=== PATIENT | male | born 1950 | race Caucasian/White ===

== ENCOUNTER 2020-08-01 14:04 | Inpatient (IN) ==
[2020-08-01] MEDS ORDERED: Naloxone 0.4 MG/ML INJ IVP PRN (17:27)
[2020-08-01] MEDS ORDERED: Melatonin 3 MG TABLET PO PRN (17:32)
[2020-08-01] MEDS ORDERED: Ondansetron 4 MG/2 ML VIAL IVP PRN (17:32)
[2020-08-01] MEDS ORDERED: Acetaminophen 325 MG TABLET PO PRN (17:32)
[2020-08-01] MEDS ORDERED: *HR* HYDROcodone/Acet 5/325 mg TABLET PO PRN (17:32)
[2020-08-01] MEDS ORDERED: Isovue-370 500 ML BOTTLE IVP ONE (17:41)
[2020-08-01] MEDS ORDERED: Saliva Stimulant 44.3ml BOTTLE PO PRN (17:43)
[2020-08-01] MEDS ORDERED: Saline Nasal Spray 44 ML BOTTLE NS PRN (17:43)
[2020-08-01] MEDS ORDERED: Artificial Tears SOLN 15 ML BOTTLE BOTH EYES PRN (17:43)
[2020-08-01] MEDS ORDERED: Perflutren Lipid Microsphere 1.3 ML in 0.9 % Sodium Chloride 8.7 ML IVP PRN (17:44)
[2020-08-01] MEDS ORDERED: Azithromycin 500 MG in 0.9 % Sodium Chloride 250 ML IVPB SCH (18:00)
[2020-08-01] MEDS ORDERED: cefTRIAXone 1,000 MG in 0.9 % Sodium Chloride Mini Bag 100 ML IVPB SCH (18:00)
[2020-08-01] MEDS ORDERED: predniSONE 20 MG TABLET PO ONE (18:36)
[2020-08-01 18:42] LABS: Immature Granulocytes % 6.3 % (0-4); Lymphocytes % 0.2 %; Mean Corpuscular HGB Conc 33.3 g/dL (31.6-35.5); Mean Corpuscular Volume 89.9 fL (83.0-100.0); Monocytes # 0.2 K/mcL (0.0-1.3); Monocytes % 2.4 %; Platelet Count 111 K/mcL (140-400); Red Blood Count 2.67 M/mcL (4.19-5.50); Red Cell Distribution Width 14.5 % (11.5-14.5); Segmented Neutrophils % 91.1 %; White Blood Count 8.8 K/mcL (4.3-11.1)
[2020-08-01 18:47] LABS: ABG Base Excess -4 mEq/L (-2 to 3); ABG HCO3 20 mEq/L (21-27); ABG Oxygen Saturation 98 % (95-98); ABG PCO2 30 mmHg (35-45); ABG PH 7.43 pH Units (7.32-7.45); ABG PO2 96 mmHg (85-104); ABG TCO2 21 mEq/L (20-26)
[2020-08-01 18:53] LABS: INR 1.1; Prothrombin Time 12.9 Seconds (9.4-12.1)
[2020-08-01 19:00] LABS: BUN/Creatinine Ratio 56 (6-26); Blood Urea Nitrogen 44 mg/dL (8-23); Calcium 8.8 mg/dL (8.6-10.3); Carbon Dioxide 19 mEq/L (23-29); Chloride 107 mEq/L (98-107); Glucose 97 mg/dL (70-105); Osmolality,Calculated 291 (280-300); Potassium 4.8 mEq/L (3.5-5.1); Sodium 135 mEq/L (136-145); eGFR For African Americans > 60 (> 60); eGFR For Non-African Americans > 60 (> 60)
[2020-08-01] MEDS ORDERED: Iron Sucrose Complex 400 MG in 0.9 % Sodium Chloride 250 ML IVPB ONE (19:00)
[2020-08-01] MEDS ORDERED: *HR* Dextrose 50 % in Water (Vial) 50 ML VIAL IVP PRN (19:06)
[2020-08-01] MEDS ORDERED: Dextrose Gel 15 GM/37.5 ML TUBE PO PRN ×2 (19:06)
[2020-08-01] MEDS ORDERED: D5% in Water 1,000 ML IVC PRN (19:06)
[2020-08-01 19:11] LABS: Platelet Estimate Slight Decrease (Normal)
[2020-08-01] MEDS ORDERED: Vancomycin 1,500 MG/265 ML IV.SOLN IVPB ONE (19:39)
[2020-08-01] MEDS: Ipratropium 1 PUFF INHALER IH SCH ×2 (19:55→23:17)
[2020-08-01] MEDS: Lactobacillus 1 EACH CAP.SPRINK PO SCH (20:02)
[2020-08-01] MEDS: Chlorhexidine Rinse 15 ML MOUTHWASH MM SCH (20:02)
[2020-08-01] MEDS: Azithromycin 500 MG in 0.9 % Sodium Chloride 250 ML IVPB SCH (20:22)
[2020-08-01] MEDS: Aztreonam 2,000 MG in 0.9 % Sodium Chloride Mini Bag 100 ML IVPB SCH (21:40)
[2020-08-01] MEDS: Insulin DETEMIR 100 UNIT/ML X5UNITS SUBQ SCH (21:40)
[2020-08-01] MEDS: Piperacillin/Tazobactam 3.375 GM in 0.9 % Sodium Chloride Mini Bag 100 ML IVPB SCH (23:13)
[2020-08-02] MEDS ORDERED: Menthol 1 EACH LOZENGE PO PRN (01:01)
[2020-08-02] MEDS: Ipratropium 1 PUFF INHALER IH SCH ×6 (03:33→23:46)
[2020-08-02] MEDS: Piperacillin/Tazobactam 3.375 GM in 0.9 % Sodium Chloride Mini Bag 100 ML IVPB SCH ×3 (04:02→20:31)
[2020-08-02] MEDS: Aztreonam 2,000 MG in 0.9 % Sodium Chloride Mini Bag 100 ML IVPB SCH ×2 (04:04→12:00)
[2020-08-02] MEDS: *HR* Heparin 5,000 UNIT/ML VIAL SQ SCH ×2 (04:38→17:12)
[2020-08-02 04:43] LABS: Hematocrit 20.9 % (37.5-50.1); Immature Granulocytes % 7.4 % (0-4); Immature Platelets 3.9 % (1.1-6.1); Lymphocytes % 0.6 %; Mean Corpuscular HGB Conc 33.5 g/dL (31.6-35.5); Mean Corpuscular Volume 89.7 fL (83.0-100.0); Mean Platelet Volume 11.2 fL (9.4-12.4); Monocytes # 0.1 K/mcL (0.0-1.3); Monocytes % 1.8 %; Neutrophils # 4.5 K/mcL (1.6-8.9); Platelet Count 101 K/mcL (140-400); Red Blood Count 2.33 M/mcL (4.19-5.50); Red Cell Distribution Width 14.3 % (11.5-14.5); Segmented Neutrophils % 90.2 %
[2020-08-02 05:04] LABS: Platelet Estimate Slight Decrease (Normal); Toxic Granulation Present (Not Present)
[2020-08-02 05:06] LABS: Alanine Aminotransferase 12 Units/L (7-52); Albumin 2.2 g/dL (3.5-5.7); Albumin/Globulin Ratio 1.5 (1.1-2.2); Alkaline Phosphatase 56 Units/L (34-104); Aspartate Amino Transferase 7 Units/L (13-39); BUN/Creatinine Ratio 45 (6-26); Bilirubin,Total 0.4 mg/dL (0.3-1.0); Blood Urea Nitrogen 37 mg/dL (8-23); C-Reactive Protein 19 mg/L (Less than 10); Calcium 8.7 mg/dL (8.6-10.3); Carbon Dioxide 19 mEq/L (23-29); Chloride 108 mEq/L (98-107); Globulin 1.5 g/dL (2.4-3.5); Glucose 230 mg/dL (70-105); Lactate Dehydrogenase 197 Units/L (140-271); Magnesium 1.9 mg/dL (1.6-2.6); Osmolality,Calculated 290 (280-300); Phosphorous 2.3 mg/dL (2.7-4.5); Potassium 4.4 mEq/L (3.5-5.1); Sodium 132 mEq/L (136-145); Total Protein 3.7 g/dL (6.4-8.9); eGFR For African Americans > 60 (> 60); eGFR For Non-African Americans > 60 (> 60)
[2020-08-02 05:27] LABS: Ferritin > 1500 ng/mL (20-250)
[2020-08-02 05:51] LABS: Estimated Average Glucose 169 mg/dl; Hemoglobin A1C 7.5 %
[2020-08-02] MEDS: Insulin LISPRO 300 UNITS/3 ML VIAL SUBQ SCH ×3 (08:51→17:12)
[2020-08-02] MEDS: Lactobacillus 1 EACH CAP.SPRINK PO SCH ×2 (08:52→20:29)
[2020-08-02] MEDS: Chlorhexidine Rinse 15 ML MOUTHWASH MM SCH ×2 (08:52→20:32)
[2020-08-02] MEDS: Albumin 25% 25gram/100mL 25 GM/100 ML IV.SOLN IVPB SCH ×2 (08:57→09:20)
[2020-08-02] MEDS: Vancomycin 1,250 MG/262.5 ML IV.SOLN IVPB SCH ×2 (08:58→20:30)
[2020-08-02] MEDS ORDERED: Furosemide 20 MG/2 ML VIAL IVP SCH (09:00)
[2020-08-02] MEDS ORDERED: Cholecalciferol (D-3) 1,000 UNIT (25MCG) TABLET PO SCH (09:00)
[2020-08-02] MEDS ORDERED: Multivit/Ca/Min/Fe/FA 1 TAB TABLET PO SCH (09:00)
[2020-08-02] MEDS ORDERED: predniSONE 20 MG TABLET PO SCH (09:00)
[2020-08-02] MEDS: Nystatin SUSP 5 ML UD.LIQ PO SCH ×4 (09:55→20:32)
[2020-08-02] MEDS: Benzonatate 100 MG CAPSULE PO SCH ×2 (15:23→20:29)
[2020-08-02] MEDS: *HR* LORazepam 2 MG/ML VIAL IVP PRN (15:58)
[2020-08-02] MEDS: Budesonide/Formoterol 160/4.5 1 PUFF INH IH SCH (20:06)
[2020-08-02] MEDS: Azithromycin 500 MG in 0.9 % Sodium Chloride 250 ML IVPB SCH (20:30)
[2020-08-02] MEDS: Insulin DETEMIR 100 UNIT/ML X5UNITS SUBQ SCH (20:32)
[2020-08-02] MEDS ORDERED: Mirtazapine 15 MG TABLET PO SCH (21:00)
[2020-08-02 23:45] VITALS: BP 98/77
[2020-08-03 01:50] LABS: Segmented Neutrophils % 86.5 %
[2020-08-03 01:51] LABS: Hematocrit 17.9 % (37.5-50.1); Immature Granulocytes % 8.6 % (0-4); Lymphocytes # 0.2 K/mcL (0.6-4.6); Lymphocytes % 2.2 %; Mean Corpuscular HGB Conc 31.3 g/dL (31.6-35.5); Mean Corpuscular Hemoglobin 29.2 pg (28.0-33.3); Mean Corpuscular Volume 93.2 fL (83.0-100.0); Mean Platelet Volume 12.2 fL (9.4-12.4); Monocytes # 0.3 K/mcL (0.0-1.3); Monocytes % 2.7 %; Neutrophils # 9.6 K/mcL (1.6-8.9); Platelet Count 131 K/mcL (140-400); Red Blood Count 1.92 M/mcL (4.19-5.50); Red Cell Distribution Width 14.9 % (11.5-14.5); White Blood Count 11.1 K/mcL (4.3-11.1)
[2020-08-03] MEDS: *HR* LORazepam 2 MG/ML VIAL IVP PRN (01:52)
[2020-08-03 01:59] LABS: Hemoglobin 5.6 g/dL (12.9-16.9)
[2020-08-03 02:13] LABS: Alanine Aminotransferase 11 Units/L (7-52); Albumin 2.2 g/dL (3.5-5.7); Albumin/Globulin Ratio 1.6 (1.1-2.2); Alkaline Phosphatase 53 Units/L (34-104); Aspartate Amino Transferase 8 Units/L (13-39); BUN/Creatinine Ratio 54 (6-26); Bilirubin,Total 0.4 mg/dL (0.3-1.0); Blood Urea Nitrogen 54 mg/dL (8-23); Calcium 8.7 mg/dL (8.6-10.3); Carbon Dioxide 17 mEq/L (23-29); Chloride 109 mEq/L (98-107); Globulin 1.4 g/dL (2.4-3.5); Glucose 405 mg/dL (70-105); Large Platelets Present (Not Present); Magnesium 2.2 mg/dL (1.6-2.6); Osmolality,Calculated 314 (280-300); Phosphorous 2.8 mg/dL (2.7-4.5); Platelet Estimate Normal (Normal); Potassium 4.3 mEq/L (3.5-5.1); Sodium 136 mEq/L (136-145); Total Protein 3.6 g/dL (6.4-8.9); eGFR For African Americans > 60 (> 60); eGFR For Non-African Americans > 60 (> 60)
[2020-08-03 02:14] LABS: C-Reactive Protein 18 mg/L (Less than 10); Lactate Dehydrogenase 187 Units/L (140-271)
[2020-08-03] MEDS: Piperacillin/Tazobactam 3.375 GM in 0.9 % Sodium Chloride Mini Bag 100 ML IVPB SCH (02:22)
[2020-08-03] MEDS: *HR* Heparin 5,000 UNIT/ML VIAL SQ SCH (02:22)
[2020-08-03 02:33] LABS: Ferritin > 1500 ng/mL (20-250)
[2020-08-03] MEDS ORDERED: Morphine Sulfate 2 MG/ML SYRINGE IH PRN (02:46)
[2020-08-03] MEDS: Ipratropium 1 PUFF INHALER IH SCH ×3 (04:08→11:31)
[2020-08-03] MEDS: Budesonide/Formoterol 160/4.5 1 PUFF INH IH SCH (08:06)
[2020-08-03] MEDS ORDERED: calcitrioL 0.25 MCG CAPSULE PO SCH (09:00)
[2020-08-03] MEDS ORDERED: Aspirin Enteric Coated 81 MG Tablet PO SCH (09:00)
[2020-08-03] MEDS ORDERED: Ascorbic Acid 500 MG TABLET PO SCH (09:00)
[2020-08-03] MEDS ORDERED: Sennosides/Docusate Sodium TABLET PO SCH (09:00)
[2020-08-03] MEDS ORDERED: polyethylene glycoL 3350 17 GM POWD.PACK PO SCH (09:00)
== END 2020-08-03 08:30 | disposition expired | DRG 196 ==
LOC: 2NENU → SUATTDRO 16:59
PROVIDERS: ADMIT Internal Medicine; ATTEND Internal Medicine